=== PATIENT | male | born 1985 | race Caucasian/White ===

== ENCOUNTER 2019-09-08 20:34 | Emergency (ER) | payer BC ==
--- NOTE | 2019-09-08 20:56 | EDM.PDOC ---
ED HPI GENERAL MEDICAL PROBLEM - General Chief Complaint: Upper Extremity Injury/Pain Stated Complaint: INJURED RT WRIST Time Seen by Provider: 09/08/19 20:43 Source of Information: Reports: Patient History Limitations: Reports: No Limitations - History of Present Illness INITIAL COMMENTS - FREE TEXT/NARRATIVE: HISTORY AND PHYSICAL: History of present illness: Patient is a 33-year-old male who presents to the ED today with concern of right forearm pain and swelling x2 days. Patient states he did not injure the wrist that he can remember but she started noticing it was painful and swollen. 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 Patient denies any prior injury or trauma. Patient denies any other symptoms or concerns. Patient denies fever, chills, chest pain, shortness of breath, or cough. Denies headache, neck stiff ness, change in vision, syncope, or near syncope. Denies nausea, vomiting, abdominal pain, diarrhea, constipation, or dysuria. Has not noted any blood in urine or stool. Patient has been eating and drinking appropriately. Review of systems: As per history of present illness and below otherwise all systems reviewed and negative. Past medical history: As per history of present illness and as reviewed below otherwise noncontributory. Surgical history: As per history of present illness and as reviewed below otherwise noncontributory. Social history: See social history for further information Family history: As per history of present illness and as reviewed below otherwise noncontributory. Physical exam: General: Patient is alert, oriented, and in no acute distress. Patient sitting comfortably on exam table. HEENT: Atraumatic, normocephalic, pupils equal and reactive bilaterally, negative for conjunctival pallor or scleral icterus, mucous membranes moist, TMs normal bilaterally, throat clear, neck supple, nontender, trachea midline. No drooling or trismus noted. No meningeal signs. No hot potato voice noted. Lungs: Clear to auscultation, breath sounds equal bilaterally, chest nontender. Heart: S1S2, regular rate and rhythm without overt murmur Abdomen: Soft, nondistended, nontender. Negative for masses or hepatosplenomegaly. Negative for costovertebral tenderness. Pelvis: Stable nontender. Genitourinary: Deferred. Rectal: Deferred. Skin: Intact, warm, dry. No lesions or rashes noted. Extremities: Negative for cords or calf pain. Neurovascular unremarkable. There is an area of mild-moderate edema of the mid/distal right forearm without warmth or edema. Patient does have full ROM of complete RUE but does have mild pain with ROM of right wrist. Radial pulse grossly intact of RUE with cap refill <2 seconds. Neuro: Awake, alert, oriented. Cranial nerves II through XII unremarkable. Cerebellum unremarkable. Motor and sensory unremarkable throughout. Exam nonfocal. Notes: Dr. Sher directly involved in patient care. Discussed the importance of follow up with a primary care provider. Voices understanding and is agreeable to plan of care. Denies any further questions or concerns at this time. Diagnostics: Forearm and hand XR Therapeutics: Forearm splint Prescription: None Impression: Forearm contusion, right Plan: 1. Rest, ice, elevate the affected extremity. You can apply ice 15 minutes on, 15 minutes off. 2. Tylenol and/or Ibuprofen as directed for pain management or discomfort. 3. Follow up with the primary care provider as discussed. Return to the ED as needed and as discussed. Definitive disposition and diagnosis as appropriate pending reevaluation and review of above. right FA Pain Score (Numeric/FACES): 5 - Related Data Allergies Allergy/AdvReac Type Severity Reaction Status Date / Time Sulfa (Sulfonamide Allergy Hives Verified 09/08/19 20:47 Antibiotics) Home Meds: Home Meds . 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 Hematologic History: Reports: None Immunologic History: Reports: None Oncologic (Cancer) History: Reports: None Dermatologic History: Reports: None - Infectious Disease History Infectious Disease History: Reports: None - Past Surgical History Head Surgeries/Procedures: Reports: None Social & Family History - Family History Family Medical History: Noncontributory - Tobacco Use Smoking Status *Q: Never Smoker - Caffeine Use Caffeine Use: Reports: Energy Drinks - Recreational Drug Use Recreational Drug Use: No Review of Systems - Review of Systems Review Of Systems: Comprehensive ROS is negative, except as noted in HPI. ED EXAM, GENERAL - Physical Exam Exam: See Below (see dictation) Course - Vital Signs Last Recorded V/S: Last Vital Signs Temp 98.5 F 09/08/19 20:45 Pulse 82 09/08/19 21:41 Resp 16 09/08/19 21:41 BP 131/81 09/08/19 21:41 Pulse Ox 97 09/08/19 21:41 - Orders/Labs/Meds Orders: Active Orders 24 hr Category Date Time Status Forearm 2V Rt [CR] Stat Exams 09/08/19 20:53 Taken Hand Comp Min 3V Rt [CR] Stat Exams 09/08/19 20:53 Taken DME for Discharge [COMM] Stat Oth 09/08/19 21:21 Ordered Departure - Departure Time of Disposition: 21:20 Disposition: Home, Self-Care 01 Clinical Impression: Forearm contusion Qualifiers: Encounter type: initial encounter Laterality: right Qualified Code(s): S50.11XA - Contusion of right forearm, initial encounter - Discharge Information Instructions: Contusion, [id number] Referrals: PCP,None [Primary Care Provider] - Forms: ED Department Discharge Additional Instructions: The following information is given to patients seen in the emergency department who are being discharged to home. This information is to outline your options for follow-up care. We provide all patients seen in our emergency department with a follow-up referral. The need for follow-up, as well as the timing and circumstances, are variable depending upon the specifics of your emergency department visit. If you don't have a primary care physician on staff, we will provide you with a referral. We always advise you to contact your personal physician following an emergency department visit to inform them of the circumstance of the visit and for follow-up with them and/or the need for any referrals to a consulting specialist. The emergency department will also refer you to a specialist when appropriate. This referral assures that you have the opportunity for follow-up care with a specialist. All of these measure are taken in an effort to provide you with optimal care, which includes your follow-up. Under all circumstances we always encourage you to contact your private physician who remains a resource for coordinating your care. When calling for follow-up care, please make the office aware that this follow-up is from your recent emergency room visit. If for any reason you are refused follow-up, please contact the [facility] Emergency Department at and asked to speak to the emergency department charge nurse. [facility] [address] [place] [address] [facility] [address] [place] [id number] 1. Rest, ice, elevate the affected extremity. You can apply ice 15 minutes on, 15 minutes off. 2. Tylenol and/or Ibuprofen as directed for pain management or discomfort. 3. Follow up with the primary care provider as discussed. Return to the ED as needed and as discussed. Sepsis Event Note - Evaluation Sepsis Screening Result: No Definite Risk - Focused Exam Vital Signs: Vital Signs Temp Pulse Resp BP Pulse Ox 09/08/19 21:41 82 16 131/81 97 09/08/19 20:45 98.5 F 88 18 140/88 98 Date Exam was Performed: 09/08/19 Time Exam was Performed: 21:59 - My Orders Last 24 Hours: My Active Orders 09/08/19 20:53 Forearm 2V Rt [CR] Stat Hand Comp Min 3V Rt [CR] Stat 09/08/19 21:21 DME for Discharge [COMM] Stat - Assessment/Plan Last 24 Hours: My Active Orders 09/08/19 20:53 Forearm 2V Rt [CR] Stat Hand Comp Min 3V Rt [CR] Stat 09/08/19 21:21 DME for Discharge [COMM] Stat
--- NOTE | 2019-09-09 00:44 | CR ---
Indication: Pain and swelling Technique: Two views Comparison: None Findings: Bones: Alignment is normal. No fractures or bone lesions. Joint spaces: Unremarkable. Soft tissues: Mild distal soft tissue swelling. Dictated by To Tovar MD @ Sep 09 2019 12:38AM Signed by Dr. To Tovar @ Sep 09 2019 12:43AM
--- NOTE | 2019-09-09 00:46 | CR ---
Indication: Pain and swelling Technique: Three views right hand Comparison: None Findings: Bones: Irregularity and calcification near the tip of the right 4th tuft consistent with an old injury. Joint spaces: Unremarkable. Soft tissues: Minimal soft tissue swelling. Dictated by To Tovar MD @ Sep 09 2019 12:43AM Signed by Dr. To Tovar @ Sep 09 2019 12:44AM
== END 2019-09-08 21:43 | disposition home or self-care (01) ==
LOC: MW.ED 20:34
DX: S50.11XA Contusion of right forearm, initial encounter (principal); W22.8XXA Striking against or struck by other objects, initial encounter; Z88.2 Allergy status to sulfonamides
CPT/HCPCS: 73090-26-RT; 73090-RT; 73130-26-RT; 73130-RT; 99282; 99283-25